=== PATIENT | male | born 1950 | race Caucasian/White ===

== ENCOUNTER 2018-03-10 16:54 | Inpatient (IN) | payer OTHER ==
[2018-03-10] MEDS ORDERED: NS 1,000 ML IV ONE (18:18)
[2018-03-10] MEDS ORDERED: PANTOPRAZOLE SODIUM 40 MG VIAL ONE (18:43)
--- NOTE | 2018-03-10 19:04 | CPEKG ---
Test Reason : OPEN Blood Pressure : / mmHG Vent. Rate : 097 BPM Atrial Rate : 098 BPM P-R Int : 128 ms QRS Dur : 090 ms QT Int : 349 ms P-R-T Axes : 043 060 046 degrees QTc Int : 444 ms Sinus rhythm Confirmed by Dayday Whitmore ([id number]) on 03/10/2018 7:04:14 PM Referred By: Confirmed By:Dayday Whitomre
[2018-03-10 19:05] LABS: PLATELET COUNT 301 10^3/uL (150-400)
[2018-03-10 19:12] LABS: INR 1.08 (0.83-1.16); PROTIME(PATIENT) 14.2 SEC (12.0-15.0)
--- NOTE | 2018-03-10 19:12 | EDPHY ---
H & P Stated Complaint: Syncopal episode Time Seen by Provider: 03/10/18 18:05 HPI/ROS: CHIEF COMPLAINT: GI bleed HISTORY OF PRESENT ILLNESS: The patient is a 67-year-old man who has had 4 episodes of dark and maroon colored stool this afternoon and then a syncopal episode on the toilet. His brought him here to the ER. He states that he now feels fine that he is lying down. He states however that he did feel lightheaded for about an hour after he fainted. He denies any pain. No abdominal pain. No vomiting. None no heartburn. No history of cardiac disease. Severity: Moderate Modifying factors: None REVIEW OF SYSTEMS: Constitutional: denies: chills, fever, recent illness, recent injury EENTM: denies: blurred vision, double vision, nose congestion Respiratory: denies: cough, shortness of breath Cardiac: denies: chest pain, irregular heart rate, lightheadedness, palpitations Gastrointestinal/Abdominal: See HPI denies: abdominal pain, nausea, vomiting, Genitourinary: denies: dysuria, frequency, hematuria, pain Musculoskeletal: denies: joint pain, muscle pain Skin: denies: lesions, rash, jaundice, bruising Neurological: denies: headache, numbness, paresthesia, tingling, dizziness, weakness Hematologic/Lymphatic: denies: blood clots, easy bleeding, easy bruising Immunologic/allergic: denies: HIV/AIDS, transplant 10 systems reviewed and negative except as noted EXAM: GENERAL: Well-appearing, well-nourished and in no acute distress. HEAD: Atraumatic, normocephalic. EYES: Pupils equal round and reactive to light, extraocular movements intact, sclera anicteric, conjunctiva are normal. ENT: TMs normal, nares patent, oropharynx clear without exudates. Moist mucous membranes. NECK: Normal range of motion, supple without lymphadenopathy or JVD. LUNGS: Breath sounds clear to auscultation bilaterally and equal. No wheezes rales or rhonchi. HEART: Regular rate and rhythm without murmurs, rubs or gallops. ABDOMEN: Soft, nontender, normoactive bowel sounds. No guarding, no rebound. No masses appreciated. BACK: No CVA tenderness, no spinal tenderness, step-offs or deformities EXTREMITIES: Normal range of motion, no pitting or edema. No clubbing or cyanosis. NEUROLOGICAL: Cranial nerves II through XII grossly intact. Normal speech, normal gait. 5/5 strength, normal movement in all extremities, normal sensation , normal reflexes PSYCH: Normal mood, normal affect. SKIN: Warm, dry, normal turgor, no visible rashes or lesions. Source: Patient Exam Limitations: No limitations - Personal History Current Tetanus/Diphtheria Vaccine: No - Medical/Surgical History Hx Asthma: No Hx Chronic Respiratory Disease: No Hx Diabetes: No Hx Cardiac Disease: No Hx Renal Disease: No Hx Cirrhosis: No Hx Alcoholism: No Other PMH: Depression, ADHD - Family History Significant Family History: No pertinent family hx - Social History Smoking Status: Former smoker Alcohol Use: Sober Drug Use: None Constitutional: Initial Vital Signs Temperature (C) 36.6 C 03/10/18 17:00 Heart Rate 91 03/10/18 17:00 Respiratory Rate 18 03/10/18 17:00 Blood Pressure 132/65 H 03/10/18 17:00 O2 Sat (%) 98 03/10/18 17:00 O2 Delivery Mode Room Air Allergies/Adverse Reactions: No Known Allergies Allergy (Unverified 03/10/18 17:04) Home Medications: Medication Instructions Recorded Amphet Asp and D/Amphet [Adderall 20 mg PO ,13 03/10/18 20 mg (*)] Aspirin [Aspirin 325 mg (*)] 325 mg PO DAILY 03/10/18 Herbals/Supplements -Info Only 1 ea PO AD 03/10/18 Ibuprofen [Motrin (*)] 400 - 600 mg PO DAILY PRN 03/10/18 Other Meds? 03/10/18 Testosterone Cmpd Crm DAILY 03/10/18 lamoTRIgine [LamICTAL 100 MG (*)] 100 mg PO DAILY 03/10/18 Medical Decision Making - Diagnostics EKG Interpretation: An EKG obtained and was read and documented in trace view. Please see trace view for full reading and report. Sinus rhythm, no acute ischemic changes ED Course/Re-evaluation: The patient fainted again here in the ER while on the toilet giving us a stool sample. The stool is maroon colored blood only. No visible stool. He has been treated with Protonix. His blood pressure is 111/80 a heart rate of 80. H& H is 10/33. I have consulted GI and will admit to the medical service. 7:25 p.m. I discussed the case with Dr. Rocha who will likely scope tonight if his electrolytes are okay he would prefer the patient be prepped. 7:40 p.m. I discussed the case with Dr. Jimenez who will admit to the medical service step-down unit. Differential Diagnosis: Partial list of the Differential diagnosis considered include but were not limited to; upper GI bleed, lower GI bleed, hemorrhoid and although unlikely based on the history and physical exam, I also considered arrhythmia, acute coronary disease, infection. Critical Care Time: Critical care time spent by me, Dr. Whitmore exclusive with this patient was 35 minutes, exclusive of the PA time exclusive of procedures. The organ system that was at risk was cardiovascular and I gave diagnostics, consultation, admission to prevent worsening of the patient's condition - Data Points Laboratory Results: Laboratory Results 03/10/18 18:52 03/10/18 18:52 03/10/18 03/10/18 03/10/18 19:12 19:00 18:52 WBC RBC Hgb Hct MCV MCH MCHC RDW Plt Count MPV Neut % (Auto) Lymph % (Auto) [place] % (Auto) Eos % (Auto) Baso % (Auto) Nucleat RBC Rel Count Absolute Neuts (auto) Absolute Lymphs (auto) Absolute Monos (auto) Absolute Eos (auto) Absolute Basos (auto) Absolute Nucleated RBC Immature Gran % Immature Gran # PT INR APTT Sodium 135 mEq/L mEq/L (135-145) Potassium 4.4 mEq/L mEq/L (3.3-5.0) Chloride 103 mEq/L mEq/L (97-110) Carbon Dioxide 25 mEq/l mEq/l (22-31) Anion Gap 7 mEq/L mEq/L (6-14) BUN 24 mg/dL H mg/dL (7-23) Creatinine 0.8 mg/dL mg/dL (0.7-1.3) Estimated GFR > 60 Glucose 115 mg/dL H mg/dL (70-100) Calcium 9.1 mg/dL mg/dL (8.5-10.4) Total Bilirubin 0.1 mg/dL mg/dL (0.1-1.4) Conjugated Bilirubin 0.1 mg/dL mg/dL (0.0-0.5) Unconjugated Bilirubin 0.0 mg/dL mg/dL (0.0-1.1) AST 30 IU/L IU/L (17-59) ALT 40 IU/L IU/L (21-72) Alkaline Phosphatase 86 IU/L IU/L (38-126) Total Protein 6.0 g/dL L g/dL (6.3-8.2) Albumin 3.6 g/dL g/dL (3.5-5.0) Lipase 107 IU/L IU/L (23-300) Stool Occult Bld Scrn NEGATIVE (NEGATIVE) Patient ABO/Rh O NEGATIVE Antibody Screen NEGATIVE Crossmatch IS Only See Detail 03/10/18 03/10/18 18:52 18:52 WBC 10.83 10^3/uL H 10^3/uL (3.80-9.50) RBC 4.03 10^6/uL L 10^6/uL (4.40-6.38) Hgb 10.2 g/dL L g/dL (13.7-17.5) Hct 33.1 % L % (40.0-51.0) MCV 82.1 fL fL (81.5-99.8) MCH 25.3 pg L pg (27.9-34.1) MCHC 30.8 g/dL L g/dL (32.4-36.7) RDW 20.5 % H % (11.5-15.2) Plt Count 301 10^3/uL 10^3/uL (150-400) MPV 9.4 fL fL (8.7-11.7) Neut % (Auto) 84.2 % H % (39.3-74.2) Lymph % (Auto) 9.0 % L % (15.0-45.0) [place] % (Auto) 5.7 % % (4.5-13.0) Eos % (Auto) 0.4 % L % (0.6-7.6) Baso % (Auto) 0.3 % % (0.3-1.7) Nucleat RBC Rel Count 0.0 % % (0.0-0.2) Absolute Neuts (auto) 9.13 10^3/uL H 10^3/uL (1.70-6.50) Absolute Lymphs (auto) 0.97 10^3/uL L 10^3/uL (1.00-3.00) Absolute Monos (auto) 0.62 10^3/uL 10^3/uL (0.30-0.80) Absolute Eos (auto) 0.04 10^3/uL 10^3/uL (0.03-0.40) Absolute Basos (auto) 0.03 10^3/uL 10^3/uL (0.02-0.10) Absolute Nucleated RBC 0.00 10^3/uL 10^3/uL (0-0.01) Immature Gran % 0.4 % % (0.0-1.1) Immature Gran # 0.04 10^3/uL 10^3/uL (0.00-0.10) PT 14.2 SEC SEC (12.0-15.0) INR 1.08 (0.83-1.16) APTT 26.6 SEC SEC (23.0-38.0) Sodium Potassium Chloride Carbon Dioxide Anion Gap BUN Creatinine Estimated GFR Glucose Calcium Total Bilirubin Conjugated Bilirubin Unconjugated Bilirubin AST ALT Alkaline Phosphatase Total Protein Albumin Lipase Stool Occult Bld Scrn Patient ABO/Rh Antibody Screen Crossmatch IS Only Medications Given: Discontinued Medications Sodium Chloride (Ns) 1,000 mls @ 0 mls/hr IV EDNOW ONE; Wide Open PRN Reason: Protocol Stop: 03/10/18 18:19 Last Admin: 03/10/18 19:07 Dose: 1,000 mls Pantoprazole Sodium (Protonix) 40 mg IVP Q6H [facility] Stop: 09/07/18 00:24 Last Admin: 03/10/18 19:07 Dose: 40 mg Departure - Departure Disposition: [facility] Inpatient Acute Clinical Impression: Upper GI bleeding, Syncope and collapse Condition: Critical
[2018-03-10] MEDS ORDERED: ONDANSETRON 4 MG/2 ML VIAL IVP PRN (20:23)
[2018-03-10] MEDS ORDERED: ACETAMINOPHEN 325 MG TAB PO PRN (20:23)
[2018-03-10] MEDS ORDERED: ONDANSETRON DISINTEGRATING 4 MG TAB PO PRN (20:23)
[2018-03-10] MEDS ORDERED: Herbals/Supplements -Info Only PO SCH (20:30)
[2018-03-10] MEDS ORDERED: NS 1,000 ML IV SCH (20:30)
[2018-03-10] MEDS: PANTOPRAZOLE SODIUM 40 MG VIAL IVP SCH (21:49)
--- NOTE | 2018-03-10 23:34 | PDGENHP ---
History and Physical - Chief Complaint Acute bloody diarrhea - History of Present Illness Primary care provider: Dr. Mondragon HPI: 67-year-old male presents with acute bloody stools characterized as initially bloody diarrhea with bowel urgency with onset at approximately 1:00 p.m., and approximately 4 subsequent episodes occurring on the afternoon of presentation. After he sat on the toilet, he had associated stay, subsequent syncopal episode after he arose. This was witnessed by his . He did not experience acute trauma, as he did have prodrome will lightheadedness and he was able to lower himself to a carpeted surface. After wakening, the patient experienced approximately 1 hr of ongoing lightheadedness which was alleviated by lying supine. He subsequently experienced an additional bowel movement which reportedly consisted of black and tarry stool. After presenting to the emergency department, he experienced 1 subsequent melanotic stool, followed by recurrent lightheadedness and a brief syncopal episode as well. The patient denies experiencing any concomitant abdominal pain, and he has never had bowel symptoms like these before. He does report that approximately 6 months ago, the patient did undergo a fecal test by his primary care provider and was subsequently placed on antibiotics and [place] for possible H pylori. He also reports the onset of lower back pain around that time as well and he begin taking ibuprofen approximately 400-600 mg several times weekly. He also takes a full-dose aspirin daily for primary CAD prevention. Of note, his primary care provider has recently noted anemia, unclear hemoglobin level, recommended outpatient iron oral therapy as well as scheduled colonoscopy, yet to be scheduled. History Information - Allergies/Home Medication List Allergies/Adverse Reactions: No Known Allergies Allergy (Unverified 03/10/18 17:04) Home Medications: Amphet Asp and D/Amphet [Adderall 20 mg (*)] 20 mg PO 08,13 03/10/18 [Last Taken 03/10/18] Aspirin [Aspirin 325 mg (*)] 325 mg PO DAILY 03/10/18 [Last Taken 03/10/18] Herbals/Supplements -Info Only 1 ea PO AD 03/10/18 [Last Taken Unknown] Ibuprofen [Motrin (*)] 400 - 600 mg PO DAILY PRN 03/10/18 [Last Taken 03/10/18] Other Meds? 03/10/18 [Last Taken Unknown] Testosterone Cmpd Crm DAILY 10/19/18 [Last Taken Unknown] lamoTRIgine [LamICTAL 100 MG (*)] 100 mg PO DAILY 03/10/18 [Last Taken 03/10/18] I have personally reviewed and updated: family history, medical history, social history, surgical history - Past Medical History GERD (Remote past) Additional medical history: Chronic lower back pain utilizing NSAIDs. H pylori approximately 6 months ago - Surgical History Additional surgical history: Colonoscopy approximately 10 years ago - Family History Additional family history: 2 second-degree relatives with colon cancer, mother with malignancy of unknown origin - Social History Smoking Status: Former smoker Alcohol Use: Rarely Drug Use: None Additional social history: Independent in his ADLs, does not engage in scheduled exercise Review of Systems Review of Systems: ROS: 10pt was reviewed & negative except for what was stated in HPI & below Gastrointestinal: Reports: black stools, blood streaked stools, diarrhea (Bloody ) Neurological: Reports: other (Syncope x2) Physical Exam Physical Exam: Temp Pulse Resp BP Pulse Ox 37 C 83 20 126/56 H 97 03/10/18 20:20 03/10/18 22:00 03/10/18 22:00 03/10/18 22:00 03/10/18 22:00 Constitutional: no apparent distress, appears nourished, not in pain, No uncomfortable Eyes: PERRL, anicteric sclera, EOMI Ears, Nose, Mouth, Throat: moist mucous membranes, hearing normal, ears appear normal, no oral mucosal ulcers Cardiovascular: tachycardia, No systolic murmur, No irregularly irregular, No edema Respiratory: no respiratory distress, no rales or rhonchi, clear to auscultation Gastrointestinal: normoactive bowel sounds, soft, non-tender abdomen, no palpable masses, No distension Genitourinary: no bladder fullness, no bladder tenderness Skin: warm, No rash Neurologic: AAOx3, sensation intact bilaterally, No weakness Psychiatric: interacting appropriately, not anxious, not encephalopathic, thought process linear Lab Data & Imaging Review 03/10/18 18:52 03/10/18 18:52 WBC 10.83 10^3/uL (3.80-9.50) H 03/10/18 18:52 RBC 4.03 10^6/uL (4.40-6.38) L 03/10/18 18:52 Hgb 10.2 g/dL (13.7-17.5) L 03/10/18 18:52 Hct 33.1 % (40.0-51.0) L 03/10/18 18:52 MCV 82.1 fL (81.5-99.8) 03/10/18 18:52 MCH 25.3 pg (27.9-34.1) L 03/10/18 18:52 MCHC 30.8 g/dL (32.4-36.7) L 18 18:52 RDW 20.5 % (11.5-15.2) H 03/10/18 18:52 Plt Count 301 10^3/uL (150-400) 03/10/18 18:52 MPV 9.4 fL (8.7-11.7) 03/10/18 18:52 Neut % (Auto) 84.2 % (39.3-74.2) H 03/10/18 18:52 Lymph % (Auto) 9.0 % (15.0-45.0) L 03/10/18 18:52 [place] % (Auto) 5.7 % (4.5-13.0) 03/10/18 18:52 Eos % (Auto) 0.4 % (0.6-7.6) L 03/10/18 18:52 Baso % (Auto) 0.3 % (0.3-1.7) 03/10/18 18:52 Nucleat RBC Rel Count 0.0 % (0.0-0.2) 03/10/18 18:52 Absolute Neuts (auto) 9.13 10^3/uL (1.70-6.50) H 03/10/18 18:52 Absolute Lymphs (auto) 0.97 10^3/uL (1.00-3.00) L 03/10/18 18:52 Absolute Monos (auto) 0.62 10^3/uL (0.30-0.80) 18 18:52 Absolute Eos (auto) 0.04 10^3/uL (0.03-0.40) 03/10/18 18:52 Absolute Basos (auto) 0.03 10^3/uL (0.02-0.10) 03/10/18 18:52 Absolute Nucleated RBC 0.00 10^3/uL (0-0.01) 03/10/18 18:52 Immature Gran % 0.4 % (0.0-1.1) 03/10/18 18:52 Immature Gran # 0.04 10^3/uL (0.00-0.10) 03/10/18 18:52 PT 14.2 SEC (12.0-15.0) 03/10/18 18:52 INR 1.08 (0.83-1.16) 03/10/18 18:52 APTT 26.6 SEC (23.0-38.0) 03/10/18 18:52 VBG Lactic Acid 0.9 mmol/L (0.7-2.1) 03/10/18 20:35 Sodium 135 mEq/L (135-145) 03/10/18 18:52 Potassium 4.4 mEq/L (3.3-5.0) 03/10/18 18:52 Chloride 103 mEq/L (97-110) 03/10/18 18:52 Carbon Dioxide 25 mEq/l (22-31) 03/10/18 18:52 Anion Gap 7 mEq/L (6-14) 03/10/18 18:52 BUN 24 mg/dL (7-23) H 03/10/18 18:52 Creatinine 0.8 mg/dL (0.7-1.3) 03/10/18 18:52 Estimated GFR > 60 03/10/18 18:52 Glucose 115 mg/dL (70-100) H 03/10/18 18:52 Calcium 9.1 mg/dL (8.5-10.4) 03/10/18 18:52 Total Bilirubin 0.1 mg/dL (0.1-1.4) 03/10/18 18:52 Conjugated Bilirubin 0.1 mg/dL (0.0-0.5) 03/10/18 18:52 Unconjugated Bilirubin 0.0 mg/dL (0.0-1.1) 03/10/18 18:52 AST 30 IU/L (17-59) 03/10/18 18:52 ALT 40 IU/L (21-72) 03/10/18 18:52 Alkaline Phosphatase 86 IU/L (38-126) 03/10/18 18:52 Total Protein 6.0 g/dL (6.3-8.2) L 18 18:52 Albumin 3.6 g/dL (3.5-5.0) 03/10/18 18:52 Lipase 107 IU/L (23-300) 03/10/18 18:52 Stool Occult Bld Scrn NEGATIVE (NEGATIVE) 03/10/18 19:00 Patient ABO/Rh O NEGATIVE 03/10/18 19:12 Antibody Screen NEGATIVE 03/10/18 19:12 Crossmatch IS Only See Detail 03/10/18 19:12 Visualized and Interpreted EKG results: Yes EKG Interpretation: Positive for: other (Sinus tachycardia) Assessment & Plan Assessment: 67-year-old male presenting with suspected acute upper gastrointestinal hemorrhage resulting in acute blood loss anemia as well as syncope Plan: 1. Suspected acute upper gastrointestinal hemorrhage. I suspect the patient experienced a rapidly bleeding ulcer, resulting in rapid transit of red blood and resultant diarrhea/bowel urgency followed by melanotic stool, suggestive of possibly an arterial blood bleed comma in the context of NSAIDs plus possible H pylori plus full-dose aspirin -check GI PCR panel to ensure not hemorrhagic infection -IV PPI 40 q.6 hours -discussed with Dr. Mervin Guzmán, he and I agree that this is most likely an upper GI source with an elevated BUN and description of patient's presentation, he recommends NPO, followed by urgent EGD in a.m. -if no bleeding source noted on EGD, then patient will receive colon prep but at the current time it would be prudent to hold on colon prep given the most likely upper GI source and need not to add insult to the bleeding area 2. Acute blood loss anemia. Hemoglobin 10.2, will obtain records from primary care office determined most recent baseline but the patient has visibly lost GI blood and requires transfusion of 1 unit given his syncope secondary to anemia and rapid blood loss -recheck hemoglobin level after blood transfusion -repeat CBC in a.m. 3. Syncope. Acute, most likely secondary to rapid blood loss from acute bleed -monitor on telemetry for any concomitant a arrhythmia provoked by the patient' s GI bleed -assist patient with mobility given his recurrent syncope since presenting -provide IV normal saline overnight while NPO, recheck electrolytes in a.m. Diet. NPO with IV fluids Prophylaxis. High risk patient, SCDs, pharmacologic contraindicated given his ongoing bleed Code. Full Disposition. Anticipated discharge uncertain this time, anticipated length stay greater than 48 hr for reasonable medical necessity including acute upper gastrointestinal hemorrhage with concomitant blood loss anemia, syncope, rendering the patient critically ill with high risk of worsening morbidity and/ or mortality given the persistence and recurrence of his bleeding/syncope, spent total 35 min of critical care time, specifically addressing these issues with the patient, his ICU nurse, and coordinating with Drs. Whitmore and Ramirez.
[2018-03-11] MEDS ORDERED: PANTOPRAZOLE SODIUM 40 MG VIAL IVP SCH ×2 (00:25→21:00)
[2018-03-11] MEDS: PANTOPRAZOLE SODIUM 40 MG VIAL IVP SCH ×2 (02:30→11:27)
[2018-03-11 05:41] LABS: PLATELET COUNT 224 10^3/uL (150-400)
[2018-03-11] MEDS ORDERED: NS 500 ML IV ONE (08:52)
[2018-03-11] MEDS ORDERED: MIDAZOLAM 2 MG/2 ML VIAL ONE (09:02)
[2018-03-11] MEDS ORDERED: fentaNYL 100 MCG/2 ML INJ ONE (09:02)
--- NOTE | 2018-03-11 09:05 | PDMN ---
Medical Necessity Medical necessity: [facility] [place] UGIB: 67 yo w/ acute blood loss anemia, acute UGIB hemorrhage, and acute syncope most likely r/t acute blood loss, urgent EGD scheduled for am. Disposition. Anticipated discharge uncertain this time, anticipated length stay greater than 48 hr for reasonable medical necessity including acute upper gastrointestinal hemorrhage with concomitant blood loss anemia, syncope, rendering the patient critically ill with high risk of worsening morbidity and/or mortality given the persistence and recurrence of his bleeding/syncope.
[2018-03-11] MEDS ORDERED: EPINEPHrine 1 MG/10 ML SYR IVP ONE (09:06)
--- NOTE | 2018-03-11 09:17 | PDPROPOC ---
Sedation Plan of Care Sedation Plan of Care: vital signs stable, mental status noted, patient educated of risks, benefits, alternatives, patient can tolerate sedation ASA Classification: ASA 2 Planned drugs: fentanyl, midazolam Mallampati Score: Class 2 Mallampati Reference Image: Patient passed 3-3-2 rule?: Yes
--- NOTE | 2018-03-11 09:18 | SOAPPROG ---
SOAP Progress Note Assessment/Plan: Assessment:Plan: pt seen and examined in bed full dictated consult to follow likely UGI bleed form ASA/NSAID's EGD now David Guzmán MD 03/11/18 09:17 Objective: Vital Signs Temp Pulse Resp BP Pulse Ox 37 C 71 14 125/48 H 97 03/10/18 20:20 03/11/18 06:00 03/11/18 06:00 03/11/18 06:00 03/11/18 06:00 Laboratory Results 03/11/18 05:25 03/11/18 05:25 03/10/18 03/11/18 03/12/18 05:59 05:59 05:59 Intake Total 2150 Output Total 800 Balance 1350 PT 14.2 SEC (12.0-15.0) 03/10/18 18:52 INR 1.08 (0.83-1.16) 03/10/18 18:52 ICD10 Worksheet Patient Problems: Problems Problem Status Onset Syncope and collapse Acute Upper GI bleeding Acute
[2018-03-11] MEDS ORDERED: MIDAZOLAM 2 MG/2 ML VIAL IVP ONE (09:50)
[2018-03-11] MEDS ORDERED: fentaNYL 100 MCG/2 ML INJ IVP ONE (09:50)
--- NOTE | 2018-03-11 10:04 | GIREPORT ---
[facility] - Endoscopy Department Patient Name: Dedrick Alexandra Procedure Date: 03/11/2018 8:57 AM Patient Type: Inpatient Attending MD/ ER Physician: Romario Bowden Procedure: Upper GI endoscopy Indications: Acute post hemorrhagic anemia, Melena Providers: Rober Guzmán MD Referring MD: Lance Mondragon MD Medicines: Fentanyl 100 micrograms IV, Midazolam 5 mg IV Complications: No immediate complications. Estimated blood loss: Minimal. Description of Procedure: After obtaining informed consent, the endoscope was passed under direct vision. Throughout the procedure, the patient's blood pressure, pulse, and oxygen saturations were monitored continuously. The Endoscope was intro duced through the mouth, and advanced to the third part of duodenum. The uppe r GI endoscopy was accomplished without difficulty. The patient tolerated th e procedure well. Findings: The examined esophagus was normal. Diffuse mildly erythematous mucosa without bleeding was found in the ga stric antrum. Biopsies were taken with a cold forceps for histology. Estimate d blood loss was minimal. Moderate inflammation characterized by congestion (edema), erythema and friability was found in the duodenal bulb and in the first portion of t he duodenum. The second portion of the duodenum and third portion of the duodenum we re normal. The exam was otherwise without abnormality. Estimated Blood Loss: Estimated blood loss was minimal. Post Op Diagnosis: - Normal esophagus. - Erythematous mucosa in the antrum. Biopsied. - Duodenitis. There is an ulcer hidden in the first porion of the duode num which I couldn't see despite 10 minutes in the duodenum. - Normal second portion of the duodenum and third portion of the duoden um. - The examination was otherwise normal. Recommendation: - Await pathology results. - My office will call with the pathology result with 5-7 days. If you h ave not heard from my office by 12-14, do not assume the pathology is mariah l, please call [phone] to get the pathology results. - Use Protonix (pantoprazole) 40 mg PO BID. - NO Aspirin and NSAIDs for 2 weeks. - If h pylori negative then check serum ab or stool ag when off PPI. - If h pylori is negative, then he may need longterm GI prophylaxis fo r ASA/NSAIDs - Full liquid diet. - Return patient to hospital [facility] for ongoing care. - If no further bleeding overnight, then the risk decreases and he can be discharged home with instructions to return MELIS[facility] for any recurrent blee ding. - I cannot stratify the risk of rebleed as I couldn't visualize the [facility] er I believe is present. - Thank you for allowing me to help in your patient's care. Do not hesi kim to call with any questions. Attending Participation: I personally performed the entire procedure. Ramirez Richter M.D Rober Guzmán MD 03/11/2018 10:03:20 AM This report has been signed electronicallyMathew MD Ramirez Number of Addenda: 0 Note Initiated On: 03/11/2018 8:57 AM [email or web address]
--- NOTE | 2018-03-11 10:51 | HOSPPROG ---
Hospitalist Progress Note Assessment/Plan: # UGIB - suspected duodenal ulcer but not clearly visualized - monitor inpatient overnight # ABLA d/t above - s/p 1U PRBC - recheck hgb tonight Subjective: s/p EGD with significant duodenal inflammation Objective: Vital Signs Temp Pulse Resp BP Pulse Ox 36.4 C 71 7 L 116/64 100 03/11/18 10:01 03/11/18 06:00 03/11/18 10:05 03/11/18 10:00 03/11/18 10:05 Laboratory Results 03/11/18 05:25 03/11/18 05:25 03/10/18 03/11/18 03/12/18 05:59 05:59 05:59 Intake Total 1150 200 Output Total 800 Balance 350 200 PT 14.2 SEC (12.0-15.0) 03/10/18 18:52 INR 1.08 (0.83-1.16) 03/10/18 18:52 chart reviewed discussed with Dr Guzmán - Physical Exam Constitutional: no apparent distress, appears nourished Cardiovascular: regular rate and rhythym, no murmur, rub, or gallop Respiratory: no respiratory distress, no rales or rhonchi Gastrointestinal: soft, non-tender abdomen, no palpable masses, No guarding, No rebound, No distension ICD10 Worksheet Patient Problems: Problems Problem Status Onset Upper GI bleeding Acute Syncope and collapse Acute
[2018-03-11] MEDS: lamoTRIgine 100 MG TAB PO SCH (11:27)
[2018-03-11] MEDS ORDERED: PNEUMOC 13-VAL CONJ-DIP CRM/PF 0.5 ML SYR IM ONE (11:29)
--- NOTE | 2018-03-11 12:23 | GCON ---
DATE OF CONSULTATION: 03/11/2018 REFERRING PHYSICIAN: Dr. Jimenez REASON FOR CONSULTATION: Presumed upper GI bleed with melena and posthemorrhagic anemia. HISTORY OF PRESENT ILLNESS: I have been asked by Dr. Jimenez to see the patient in consultation with chief complaint of melena and posthemorrhagic anemia. The patient is a very pleasant 67-year-old male who has past medical history significant for chronic low back pain and some psychiatric issues for which he is taking medications. He has been on an adult aspirin daily for cardiac control prevention and recently secondary to back pain he has been taking ibuprofen. He was in his usual state of health until yesterday afternoon, approximately 1 p.m., when he had episode of hematochezia with a near syncopal episode after 4 bowel movements. He did not complain of any chest pain, shortness of breath, or diaphoresis at that time. He presented to the emergency department where he had a melenic stool and a brief syncopal episode. His vital signs have been stable overnight. His hemoglobin and hematocrit have shown decrease and an elevated BUN/creatinine ratio, all consistent with an upper GI bleed. He does not complain of any heartburn, odynophagia, dysphagia, or early satiety. He has never had an upper endoscopy but thinks he had a colonoscopy approximately 10 years ago. There is a family history of colon cancer in multiple second-degree relatives and mother had unknown primary. The patient is now admitted to the step-down unit for presumed upper GI bleed and posthemorrhagic anemia. I am called to help and evaluate and treat in that regard. PAST MEDICAL HISTORY: Psychiatric issues, chronic low back pain. PAST SURGICAL HISTORY: Colonoscopy 10 years ago, wisdom teeth removed, dental surgery. FAMILY HISTORY: On his father's side, he has 2 uncles with colon cancer. His mother had an unknown primary. SOCIAL HISTORY: Does not smoke. He drinks alcohol rarely. He is . His is with him. MEDICATIONS: At home included Adderall, aspirin 325 mg, ibuprofen 200 mg - 600 mg daily p.r.n., testosterone, and Lamictal. In hospital, his medications are Tylenol p.r.n., flu vaccine, Lamictal 100 mg daily, Zofran p.r.n., Protonix 40 mg IV b.i.d., Pneumovax. ALLERGIES: No known drug allergies. REVIEW OF SYSTEMS: A complete review of systems was performed and negative other than noted in the HPI. PHYSICAL EXAM: GENERAL: Well-developed, well-nourished male sitting in bed. No acute distress. VITAL SIGNS: Blood pressure is 116/64, pulse is 70, respirations are 16. He is 100% on 2 L. EYES: Anicteric. RAFAEL, EOMI. Mouth : No lesions. NECK: Supple. Full range of motion. No JVD. BACK: No spine tenderness. No CVA tenderness. LUNGS: Clear. CARDIAC: S1, S2. Regular rate , rhythm. No murmurs, rubs, or gallops appreciated. ABDOMEN: Bowel sounds are normal in pitch and frequency. ABDOMEN: Soft, nontender. No hepatosplenomegaly. EXTREMITIES: No cyanosis, clubbing, or edema. NEUROLOGIC : Cranial nerves intact, nonfocal. SKIN: No stigmata of advanced liver disease. No rashes. LABORATORY DATA: On admission, WBC 10.83, hemoglobin 10.2, hematocrit 33.1, platelet count 301, and that was at 1852 yesterday. At 2355 yesterday, hemoglobin was down to 9.3. This morning at 5:25, hemoglobin 9.8, hematocrit 30.3, platelet count 224, WBC 8.31. ProTime yesterday 14.2, INR 1.0, aPTT 26.6. From yesterday, sodium 135, potassium 4.4, chloride 103, bicarb 25, BUN 24, creatinine 0.4, glucose 115, calcium 9.1, bilirubin 0.1, AST 30, ALT 40, alk phos 86, albumin 3.6. Lipase 107. Today's BUN was 19, creatinine 0.7. Troponins less than 0.012. ASSESSMENT: 1. Posthemorrhagic anemia. 2. Hematochezia followed by melena. 3. Elevated BUN/creatinine ratio. 4. All the above consistent with upper gastrointestinal bleed. Likely from nonsteroidal anti-inflammatory drugs, aspirin. 5. History of psychiatric disorder. Is on Lamictal and Adderall. 6. Syncope. Most likely related to acute blood loss. RECOMMENDATIONS: 1. Urgent EGD for evaluation of presumed upper GI bleed related to NSAIDs. 2. Serial H and H. 3. Continue PPI b.i.d. 4. Further recommendations to follow results of EGD and clinical course. 5. Will need screening colonoscopy as outpatient. Thank you for allowing me to participate in your patient's healthcare. Do not hesitate to call me with any questions. /[id number]/MODL MTDD
--- NOTE | 2018-03-11 16:26 | ASMTCMCOM ---
CM Note CM Note Notes: Pt was admitted with upper GI bleed. EGD planned. Pt lives with his in [place]. CM will follow for any d/c needs. Date Signed: 03/11/2018 04:26 PM Electronically Signed By:DELMY Garcia
[2018-03-11] MEDS: PANTOPRAZOLE SODIUM 40 MG TAB PO SCH (21:00)
[2018-03-12] MEDS: PANTOPRAZOLE SODIUM 40 MG TAB PO SCH (08:57)
[2018-03-12] MEDS: lamoTRIgine 100 MG TAB PO SCH (08:57)
[2018-03-12 09:10] VITALS: BP 108/54
--- NOTE | 2018-03-12 10:07 | SOAPPROG ---
SOAP Progress Note Assessment/Plan: Assessment:Plan: 1) UGI bleed - had few more stools this early am, HB dropped abit, looks good, question if rebleed vs equilibration, check CBC and Bun/cr this am. If HB up, then home with PPI BID for 4 weeks, then daily for total of 8 weeks 2) anemia - from UGI bleed - if dropped HB and BUN/Cr ratio goes up again will need repeat EGD and poss PRBC 3) colon screen - as outpt once anemia resolves - 4-[address] Bradley. Subjective: CC - UGI bleed with melena and anemia pt feels well did have few BM's early am with mild decrease BP was able to walk stairs today w/o problem no abdo pain, no n/v Objective: Vital Signs Temp Pulse Resp BP Pulse Ox 36.7 C 86 18 108/54 L 94 03/12/18 08:00 03/12/18 08:00 03/12/18 08:00 03/12/18 08:00 03/12/18 08:00 Microbiology 03/11/18 22:00 Gastrointestinal Tract Panel (PCR) - Final Stool E.coli Enteropathogenic(Epec) Laboratory Results 03/12/18 03:55 03/12/18 03:55 03/11/18 03/12/18 03/13/18 05:59 05:59 05:59 Intake Total 1150 200 Output Total 800 Balance 350 200 PT 14.2 SEC (12.0-15.0) 03/10/18 18:52 INR 1.08 (0.83-1.16) 03/10/18 18:52 A+Ox3 CTA S1S2, RRR +BS, soft nt Laboratory Tests 03/10/18 03/10/18 03/10/18 18:52 18:52 23:55 Hgb 10.2 L 9.3 L Hct 33.1 L BUN 24 H Creatinine 0.8 03/11/18 03/11/18 03/11/18 05:25 05:25 17:48 Hgb 9.8 L 9.8 L Hct 30.3 L BUN 19 Creatinine 0.7 03/12/18 03/12/18 03:55 03:55 Hgb 8.6 L Hct 26.9 L BUN 16 Creatinine 0.7 ICD10 Worksheet Patient Problems: Problems Problem Status Onset Syncope and collapse Acute Upper GI bleeding Acute
--- NOTE | 2018-03-12 11:31 | GDS ---
ALL DIAGNOSES: 1. Upper gastrointestinal bleed. 2. Acute blood loss anemia. HOSPITAL COURSE: A 67-year-old man who presented after an episode of bright red blood per rectum, as well as some melena. Underwent an upper endoscopy. Found to have a significant duodenal inflammati on, though ulcer was not directly visualized. It was presumed that the ulcer was there, however, hid den by the inflammation. He was started on PPI. His hemoglobin did trend down and he received 1 uni t of packed red blood cells. His hemoglobin on discharge is 8.5. This has been stable on 2 rechecks . His BUN and creatinine have also been rechecked and BUN has been trending down. He had been takin g NSAIDs, as well as aspirin, recommend that he stop both of these. On discharge, he is given strict return precautions. He is given a prescription for a PPI b.i.d. for the next month. He will follow up with Dr. Guzmán for the results of his biopsy, as well as to sche dule a screening colonoscopy in 4 to 8 weeks. He should start iron supplementation when his stools t urned from black to brown. He did have an enteropathogenic E coli in his stool. He is not really having any diarrhea, thus, the re is no indication to treat this. Unclear if this represents a true infection or not. STUDIES PENDING AT DISCHARGE: Pathology from his biopsy. BILLING: I spent more than 30 minutes on the day of discharge coordinating care. FOLLOWUP: 1. Primary care physician in 1 to [address] Guzmán for ongoing management of his ulcerative disease, as well as screening colonoscopy. /[id number]/MODL
== END 2018-03-12 11:30 | disposition home or self-care (01) | DRG 378 ==
LOC: OBSVTOIN 19:36 → F2N 20:11
PROVIDERS: ADMIT Internal Medicine; ATTEND Internal Medicine
PROC: 30233N1 Transfusion of Nonautologous Red Blood Cells into Peripheral Vein, Percutaneous Approach (ICD-10-PCS; 2018-03-10)
PROC: 0DB68ZX Excision of Stomach, Via Natural or Artificial Opening Endoscopic, Diagnostic (ICD-10-PCS; principal; 2018-03-11 09:30)
DX: K26.4 Chronic or unspecified duodenal ulcer with hemorrhage (principal); D62 Acute posthemorrhagic anemia; K29.81 Duodenitis with bleeding; E86.9 Volume depletion, unspecified; Z23 Encounter for immunization
CPT/HCPCS: 96374; 97116-GP; 97161-GP; G0008; G0009; G8978-GP-CJ; G8979-GP-CI; G8980-GP-CH; J2250; J3010; P9016

== ENCOUNTER → 2018-03-28 | Outpatient (CLI) | payer OTHER ==
[~2018-03-28] MED LIST: IOPAMIDOL (ISOVUE-300) 100 ML BTL ONE
== END ==
LOC: FIMAGING 10:31
PROVIDERS: ATTEND Internal Medicine Gastroenterology
DX: I25.10 Atherosclerotic heart disease of native coronary artery without angina pectoris (principal); K57.30 Diverticulosis of large intestine without perforation or abscess without bleeding; K76.89 Other specified diseases of liver; N28.1 Cyst of kidney, acquired; K40.90 Unilateral inguinal hernia, without obstruction or gangrene, not specified as recurrent; C18.0 Malignant neoplasm of cecum; C18.2 Malignant neoplasm of ascending colon; J84.10 Pulmonary fibrosis, unspecified; M43.17 Spondylolisthesis, lumbosacral region; Z80.0 Family history of malignant neoplasm of digestive organs
CPT/HCPCS: 71260; 74177; Q9967

== ENCOUNTER 2018-04-03 05:46 | Inpatient (IN) | payer OTHER ==
[2018-04-03] MEDS ORDERED: cefOXitin SODIUM 2 GM in NS 100 ML IV ONE (06:00)
[2018-04-03] MEDS ORDERED: LR 1,000 ML IV ONE (06:02)
[2018-04-03] MEDS ORDERED: MIDAZOLAM 2 MG/2 ML VIAL IVP ONE (06:55)
--- NOTE | 2018-04-03 06:55 | PDANEPAE ---
ANE History of Present Illness Low anterior laparoscopic colectomy ANE Past Medical History - Cardiovascular History Hx Hypertension: No Hx Arrhythmias: No Hx Chest Pain: No Hx Coronary Artery / Peripheral Vascular Disease: No Hx CHF / Valvular Disease: No Hx Palpitations: No - Pulmonary History Hx COPD: No Hx Asthma/Reactive Airway Disease: No Hx Recent Upper Respiratory Infection: No Hx Oxygen in Use at Home: No Hx Sleep Apnea: No - Neurologic History Hx Cerebrovascular Accident: No Hx Seizures: No Hx Dementia: No - Endocrine History Hx Diabetes: No - Renal History Hx Renal Disorders: No - Liver History Hx Hepatic Disorders: No - Neurological & Psychiatric Hx Hx Neurological and Psychiatric Disorders: No - Cancer History Hx Cancer: Yes Cancer History Comment: basal cell nose - Congenital Disorder History Hx Congenital Disorders: No - GI History Hx Gastrointestinal Disorders: Yes Gastrointestinal History Comment: ruptured ulcer, colon CA - Other Health History Other Health History: Anemia - Chronic Pain History Chronic Pain: No - Surgical History Prior Surgeries: appendectomy, hernia repair ANE Review of Systems Review of systems is: negative Review of Systems: - Exercise capacity METS (RN): 4 METS ANE Patient History - Allergies Allergies/Adverse Reactions: No Known Allergies Allergy (Unverified 03/10/18 17:04) - Home Medications Home medications: home medication list seen and reviewed Home Medications: Amphet Asp and D/Amphet [Adderall 20 mg (*)] 20 mg PO ,13 03/10/18 [Last Taken 04/02/18] Herbals/Supplements -Info Only 1 ea PO AD 03/10/18 [Last Taken 04/02/18] Testosterone Cmpd Crm 1 oswaldo TP DAILY 03/10/18 [Last Taken 04/01/18] lamoTRIgine [LamICTAL 100 MG (*)] 100 mg PO DAILY 03/10/18 [Last Taken 04/02/18] - NPO status NPO Status: no food or drink >8 hours NPO Since - Liquids (Date): 04/02/18 NPO Since - Liquids (Time): 22:00 NPO Since - Solids (Date): 04/02/18 NPO Since - Solids (Time): 10:00 - Anes Hx Anes Hx: no prior problems - Smoking Hx Smoking Status: Former smoker - Family Anes Hx Family Anes Hx: none Family Hx Anesthesia Complications: none. ANE Labs/Vital Signs - Vital Signs Vital Signs: reviewed preoperatively; see RN documention for details Blood Pressure: 130/78 Heart Rate: 87 Respiratory Rate: 18 O2 Sat (%): 97 Height: 180.34 cm Weight: 90.718 kg ANE Physical Exam - Airway Neck exam: FROM Mallampati Score: Class 2 Mouth exam: normal dental/mouth exam - Pulmonary Pulmonary: no respiratory distress - Cardiovascular Cardiovascular: regular rate and rhythym - ASA Status ASA Status: II ANE Anesthesia Plan Anesthesia Plan: general endotracheal anesthesia Urgent/Emergent Case: Mayra verma completed preop but documented later for safe timely pt care
--- NOTE | 2018-04-03 07:13 | PDHPUP ---
History & Physical Update H&P update statement: This history and physical update is based on an assessment of the patient which was completed after admission or registration (within 24 hours), but prior to the surgery/procedure. H&P update: H&P reviewed & patient examined, no change in patient's condition since H&P completed
[2018-04-03] MEDS ORDERED: LIDOCAINE 2% 100 MG/5 ML SYR ONE (07:16)
[2018-04-03] MEDS ORDERED: ONDANSETRON 4 MG/2 ML VIAL ONE (07:16)
[2018-04-03] MEDS ORDERED: fentaNYL 250 MCG/5 ML INJ ONE (07:16)
[2018-04-03] MEDS ORDERED: DEXAMETHASONE 4 MG/ML VIAL ONE (07:16)
[2018-04-03] MEDS ORDERED: ROCURONIUM 50 MG/5 ML VIAL ONE ×2 (07:16→08:03)
[2018-04-03] MEDS ORDERED: PROPOFOL 200 MG/20 ML VIAL ONE (07:16)
[2018-04-03] MEDS ORDERED: BUPIVACAINE 0.5% 30 ML SDV ONE (08:04)
[2018-04-03] MEDS ORDERED: MEPERIDINE 25 MG/0.5 ML AMP IVP PRN (08:26)
[2018-04-03] MEDS ORDERED: fentaNYL 100 MCG/2 ML INJ IVP PRN (08:26)
[2018-04-03] MEDS ORDERED: NALOXONE HCL 0.4 MG/ML INJ IVP PRN (08:26)
[2018-04-03] MEDS ORDERED: ACETAMINOPHEN 500 MG TAB PO PRN (08:26)
[2018-04-03] MEDS ORDERED: oxyCODONE IR 5 MG TAB PO PRN (08:26)
[2018-04-03] MEDS ORDERED: HYDROCODONE/APAP 5/325 TAB PO PRN (08:26)
[2018-04-03] MEDS ORDERED: HYDROmorphONE/DILAUDID 2 MG/ML INJ IVP PRN (08:26)
[2018-04-03] MEDS ORDERED: ONDANSETRON 4 MG/2 ML VIAL IVP PRN ×2 (08:26→09:33)
[2018-04-03] MEDS ORDERED: PROMETHAZINE HCL 25 MG/ML INJ IVP PRN (08:26)
[2018-04-03] MEDS ORDERED: DEXAMETHASONE 4 MG/ML VIAL IVP PRN (08:26)
--- NOTE | 2018-04-03 08:27 | POSTANESTH ---
Post Anesthetic Evaluation Cardiovascular Status: Normal, Stable, Similar to Pre-Op Cond Respiratory Status: Normal, Stable, Similar to Pre-op Cond. Level of Consciousness/Mental Status: Can Participate in Eval, Mildly Sleepy, Arousable Pain Control: Adequate, Prn Tx Ordered Nausea/Vomiting Control: Adequate, Prn Tx Ordered Complications Possibly Related to Anesthesia: None Noted
[2018-04-03] MEDS ORDERED: NEOSTIGMINE METHYLSULFATE 5 MG/5 ML SYR ONE (08:56)
[2018-04-03] MEDS ORDERED: fentaNYL 100 MCG/2 ML INJ ONE ×2 (09:18→09:53)
--- NOTE | 2018-04-03 09:30 | POSTOPPROG ---
Post Op Note Date of Operation: 04/03/18 Surgeon: Rajendra Christensen Curb Worker: Andres Anesthesiologist: Erica Anesthesia: GET(General Endotracheal) Pre-op Diagnosis: Colon cancer Post-op Diagnosis: same, umbilical hernia Indication: Same Procedure: Lap assisted transverse colectomy, hepatic flexure mobilization, umbilcal h Inf/Abcess present in the surg proc area at time of surgery?: No Depth: Organ Space EBL: 50-100 Specimen(s): Transverse colon- fresh Extra colon- permanent
[2018-04-03] MEDS ORDERED: ACETAMINOPHEN 325 MG TAB PO PRN ×2 (09:32→20:38)
[2018-04-03] MEDS ORDERED: ONDANSETRON DISINTEGRATING 4 MG TAB PO PRN (09:33)
--- NOTE | 2018-04-03 09:48 | PDMN ---
Medical Necessity Medical necessity: [facility] [place] S235 Bowel Surgery: Colectomy, Partial, with or without Ostomy, by Laparoscopy, 67 yo pt status post R hemicolectomy, MC IP only
[2018-04-03] MEDS ORDERED: POTASSIUM Cl (KCl) 10 MEQ in D5W 1/2 NS 1,000 ML IV SCH (10:00)
[2018-04-03] MEDS: HYDROmorphONE/DILAUDID 1 MG/ML INJ IVP PRN ×2 (11:06→12:55)
[2018-04-03] MEDS ORDERED: HYDROmorphONE/DILAUDID 1 MG/ML INJ IVP PRN (13:01)
[2018-04-03] MEDS ORDERED: D5W 1/2 NS W/ 20 KCl/L 1,000 ML IV SCH (13:30)
[2018-04-03] MEDS: oxyCODONE IR 5 MG TAB PO PRN ×2 (15:42→20:37)
[2018-04-03] MEDS: PANTOPRAZOLE SODIUM 40 MG TAB PO SCH (21:08)
[2018-04-04] MEDS: oxyCODONE IR 5 MG TAB PO PRN ×3 (04:28→18:36)
[2018-04-04 05:19] LABS: PLATELET COUNT 284 10^3/uL (150-400)
[2018-04-04] MEDS ORDERED: ADDERALL 20 MG TAB PO PRN (08:00)
[2018-04-04] MEDS: PANTOPRAZOLE SODIUM 40 MG TAB PO SCH ×2 (08:24→20:55)
[2018-04-04] MEDS: lamoTRIgine 100 MG TAB PO SCH (08:24)
[2018-04-04] MEDS: TESTOSTERONE CMPD TP SCH (08:25)
--- NOTE | 2018-04-04 10:06 | SOAPPROG ---
SOAP Progress Note Assessment/Plan: Assessment: 67yo male s/p transverse colectomy for colon CA, umbilical hernia repair, anemia tolerating clears, no pain, not passing gas yet PE awake, comfortable, in chair Abdomen -- nondistended, bandage dry, bowel sounds present upon auscultation, soft to palpation Plan: recheck HCT at 1400 today stay on clears for now, await further bowel function saw pt with Dr Christensen 04/04/18 10:03 Objective: Vital Signs Temp Pulse Resp BP Pulse Ox 36.6 C 72 16 118/59 L 98 04/04/18 08:00 04/04/18 08:00 04/04/18 08:00 04/04/18 08:00 04/04/18 08:00 Laboratory Results 04/04/18 05:01 04/04/18 05:01 04/03/18 04/04/18 04/05/18 05:59 05:59 05:59 Intake Total 1017 Output Total 300 Balance 717 ICD10 Worksheet Patient Problems: Problems Problem Status Onset Syncope and collapse Acute Upper GI bleeding Acute
--- NOTE | 2018-04-04 11:10 | GOP ---
DATE OF OPERATION: 04/03/2018 SURGEON: Rajendra Christensen MD LINK ASSEMBLER: Aarti Campos, nurse practitioner ANESTHESIOLOGIST: Dr. Gordillo. PREOPERATIVE DIAGNOSIS: Right colon cancer, umbilical hernia. POSTOPERATIVE DIAGNOSIS: Right colon cancer, umbilical hernia. PROCEDURE PERFORMED: Laparoscopic right hemicolectomy, umbilical hernia repair. FINDINGS: The patient was found to have a 4 cm tumor in the ascending colon with no obvious evidence of spread. The liver was clear with no evidence of metastases on visual or palpable exam. DESCRIPTION OF PROCEDURE: The patient was taken to the operating room where he received a satisfacto ry general endotracheal anesthesia by Dr. Gordillo, placed in supine position, prepped and draped in the usual sterile fashion. A curvilinear incision was made around the umbilicus. Dissection was carried down through subcutaneo us tissue. The umbilical hernia sac was dissected free. Veress needle was inserted. Pneumoperitone um was established. A 5 mm trocar was introduced, 2 other trocars then placed under direct vision. The right colon was then mobilized by dividing the lateral peritoneal reflection, as well as the term inal ileum. Dissection extended up around the hepatic flexure and transverse colon was mobilized. A portion of the omentum was from the transverse colon. The colon was rotated medially and dissected away from the ureter and the duodenum. The right colon mesentery was then divided with the Harmonic Scalpel and hemostasis was carefully obtained. After adequate mobilization, the periumbilical incision was extended cephalad for a few centimeters a nd then the linea alba was opened through the hernia sac and extending up in the midline. The wound was protected with a wound protector and the colon was brought up through this incision. The termina l ileum was divided with a BELINDA stapler and the transverse colon was divided with a BELINDA stapler. Mese nteric division was completed with the Harmonic Scalpel and the specimen was removed and sent to Path ology. A [id number]-[id number] anastomosis was made between the terminal ileum and the transverse colon. Thi s was done with insertion of a BELINDA stapler and a cross application of the stapler as well. Suture li ne was reinforced with interrupted 3-0 silk sutures. The mesentery was closed with a running 3-0 Nino ryl suture. Hemostasis was assured. There were no obvious significant enlarge nodes, liver metastas es, or peritoneal metastases. The colon was delivered back into the abdomen. Wound was irrigated. Hemostasis was assured. A clean closure setup was then used with new gowns, gloves, drapes, and instruments. The umbilical h ernia sac was dissected free and removed. The umbilical defect was closed with interrupted 0 PDS fig [id number] sutures. The linea alba was closed with a running 0 PDS suture. The wound was infiltra jerry with 0.5% Marcaine. Subcu was closed with 3-0 Vicryl and skin with a 4-0 Monocryl subcuticular s titch. The other trocar sites were also closed with 4-0 Monocryl subcuticular sutures and infiltrate d with 0.5% Marcaine. He tolerated the procedure well. There were no complications. Blood loss neg ligible. He was taken recovery room in good condition. /[id number]/MODL
--- NOTE | 2018-04-04 14:05 | ASMTCMCOM ---
CM Note CM Note Notes: CM spoke to ELLIS Swan regarding d/c POC. Pt is a 67 y/o man admitted for a cecal mass surgery. Pt will most likely d/c independent when medically stable. No therapies ordered at this time. CM available for changes. Plan: Independent Date Signed: 04/04/2018 02:04 PM Electronically Signed By:CARLO Weston
[2018-04-05] MEDS: TESTOSTERONE CMPD TP SCH (09:43)
[2018-04-05] MEDS: PANTOPRAZOLE SODIUM 40 MG TAB PO SCH (09:44)
[2018-04-05] MEDS: lamoTRIgine 100 MG TAB PO SCH (09:44)
[2018-04-05 11:49] VITALS: BP 122/54
--- NOTE | 2018-04-05 12:23 | SOAPPROG ---
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 Hasn't taken anything for pain since yesterday evening. Passing gas. Tolerating clears and light diet. No complaints. O: Alert Afebrile RRR No increased WOB Abdomen: soft, mildly ttp, incisions cdi, +BS Plan: Likely home later today. Will need to follow up with oncology as outpt. 04/05/18 12:16 Objective: Vital Signs Temp Pulse Resp BP Pulse Ox 36.9 C 81 16 122/54 H 93 04/05/18 11:48 04/05/18 11:48 04/05/18 11:48 04/05/18 11:48 04/05/18 11:48 Laboratory Results 04/04/18 13:45 04/04/18 05:01 04/04/18 04/05/18 04/06/18 05:59 05:59 05:59 Intake Total 1017 500 Output Total 300 Balance 717 500 ICD10 Worksheet Patient Problems: Problems Problem Status Onset Syncope and collapse Acute Upper GI bleeding Acute
== END 2018-04-05 14:43 | disposition home or self-care (01) | DRG 331 ==
LOC: F3E 05:46
PROVIDERS: ADMIT Surgery; ATTEND Surgery
PROC: 0DTF8ZZ Resection of Right Large Intestine, Via Natural or Artificial Opening Endoscopic (ICD-10-PCS; principal; 2018-04-03 07:15)
PROC: 0WQF4ZZ Repair Abdominal Wall, Percutaneous Endoscopic Approach (ICD-10-PCS; principal; 2018-04-03 07:15)
DX: C18.2 Malignant neoplasm of ascending colon (principal); K42.9 Umbilical hernia without obstruction or gangrene
CPT/HCPCS: J0694; J1100; J1170; J2001; J2250; J2405; J2704; J2710; J3010; J3480

== ENCOUNTER → 2018-08-25 | Outpatient (CLI) | payer OTHER | LOC: FIMAGING 11:18 | DX: M48.12 Ankylosing hyperostosis [Forestier], cervical region (principal); M50.322 Other cervical disc degeneration at C5-C6 level; M50.323 Other cervical disc degeneration at C6-C7 level ==

== ENCOUNTER → 2018-09-22 | Outpatient (CLI) | payer OTHER | LOC: FIMAGING 09:01 | PROVIDERS: ATTEND Surgery | DX: R91.1 Solitary pulmonary nodule (principal); K40.90 Unilateral inguinal hernia, without obstruction or gangrene, not specified as recurrent; K59.00 Constipation, unspecified; N20.0 Calculus of kidney | CPT/HCPCS: 74177; Q9967; 82565-PO ==